=== PATIENT | female | born 1985 | race Caucasian/White ===

== ENCOUNTER 2017-05-28 13:13 | Emergency (ER) | payer OTHER ==
[~2017-05-28] VITALS: Ht 162.6 cm; Wt 99.8 kg
[~2017-05-28 13:13] MED LIST: ADVIL200 M1 PO; AUGMENTIN 875-1 EACH PO; CEPHALEXIN500 MG PO; CIPRO500 MG PO; CLINDAMYCIN HC150 MG PO; CRUTCH1 EACH MISC; CYCLOBENZAPRINE10 MG PO; CYCLOBENZAPRINE5 MG PO; FLEXERIL10 MG PO; GUAIFENESIN-COD10 ML PO; IBUPROFEN200 M1 PO; IBUPROFEN600 MG PO; IBUPROFEN800 MG PO; KEFLEX500 MG PO; NAPROXEN500 MG PO; NORCO 5-325 TA1 EACH PO; NORCO 7.5-3251 EACH PO; PERCOCET 5-3251 EACH PO; PERMETHRIN60 GM; PREDNISONE20 MG PO; PROVENTIL HFA6.7 GM INH; PYRIDIUM200 MG PO; SUDAFED 12-HOU120 MG PO; SUDOGEST60 MG PO; SUMATRIPTAN SUC50 MG PO; TRAMADOL HCL50 MG PO; TYLENOL EXTRA500 MG PO; TYLENOL WITH C1 EACH PO; ULTRAM50 MG PO; ZYRTEC10 MG PO
== END 2017-05-28 15:28 | disposition home or self-care (01) ==
LOC: ED 13:13
DX: F32.9 Major depressive disorder, single episode, unspecified (principal); R45.851 Suicidal ideations; F17.200 Nicotine dependence, unspecified, uncomplicated; Z98.51 Tubal ligation status; Z88.0 Allergy status to penicillin; Z88.5 Allergy status to narcotic agent
CPT/HCPCS: 80053; 80176; 81001; 84703; 85025; 99283; G0480

== ENCOUNTER 2018-09-30 12:11 | Emergency (ER) | payer OTHER ==
[~2018-09-30] VITALS: Ht 162.6 cm; Wt 95.2 kg
--- OUTSIDE RECORDS SUMMARY | 2018-09-30 12:16 | XMS ---
PreManage Notification: BORA JOY Security Blackjack Pit Boss Events No recent Security Events currently on file CRITERIA MET - Group Notification CARE PROVIDERS Estee, Giuliana C Primary Care Current PHONE: Unknown orkenneth Case or Nurse Tech Current PHONE: Unknown Norma has no Care Guidelines for this patient. Adil[place] VISIT COUNT (12 MO.) 1 [facility] [place] TOTAL 1 NOTE: Visits indicate total known visits. ED/UCC VISIT TRACKING (12 MO.) 09/30/2018 12:11 [facility] [place] TYPE: Emergency COMPLAINT: - L THIGH PAIN INPATIENT VISIT TRACKING (12 MO.) No inpatient visits to display in this time frame [email or web address]
== END 2018-09-30 12:57 | disposition home or self-care (01) ==
LOC: ED 12:11
DX: S76.312A Strain of muscle, fascia and tendon of the posterior muscle group at thigh level, left thigh, initial encounter (principal); X58.XXXA Exposure to other specified factors, initial encounter; Y93.72 Activity, wrestling; G43.909 Migraine, unspecified, not intractable, without status migrainosus; F17.200 Nicotine dependence, unspecified, uncomplicated; Z88.0 Allergy status to penicillin; Z88.5 Allergy status to narcotic agent
CPT/HCPCS: 99283

== ENCOUNTER 2018-11-22 12:30 | Emergency (ER) | payer OTHER ==
[~2018-11-22] VITALS: Ht 162.6 cm; Wt 95.2 kg
--- OUTSIDE RECORDS SUMMARY | 2018-11-22 12:32 | XMS ---
PreManage Notification: BORA JOY Security Manager Clinical Applications Events No recent Security Events currently on file CRITERIA MET - Group Notification CARE PROVIDERS TIA MCCULLOUGH Physician Slot Host 10/01/2018-Current PHONE: Unknown Giuliana Fontanez Primary Care Current PHONE: Unknown orkenneth Case or Research Archaeologist Current PHONE: Unknown Norma has no Care Guidelines for this patient. E.D. VISIT COUNT (12 MO.) [address] [facility] TOTAL 2 NOTE: Visits indicate total known visits. ED/UCC VISIT TRACKING (12 MO.) 11/22/2018 12:30 [facility] [place] TYPE: Emergency COMPLAINT: - L FOOT PAIN/NON INJURY 09/30/2018 12:11 [facility] [place] TYPE: Emergency COMPLAINT: - L THIGH PAIN NON INJURY DIAGNOSES: - Migraine, unspecified, not intractable, without status migrainosus - Allergy status to narcotic agent status - Strain of muscle, fascia and tendon of the posterior muscle group at thigh level, left thigh, initial encounter - Exposure to other specified factors, initial encounter - Activity, wrestling - Nicotine dependence, unspecified, uncomplicated - Allergy status to penicillin INPATIENT VISIT TRACKING (12 MO.) No inpatient visits to display in this time frame [email or web address]
[2018-11-22] MEDS ORDERED: INDOMETHACIN50 MG PO (13:51)
== END 2018-11-22 14:06 | disposition home or self-care (01) ==
LOC: ED 12:30
DX: M79.672 Pain in left foot (principal); F17.200 Nicotine dependence, unspecified, uncomplicated; Z88.0 Allergy status to penicillin; Z88.5 Allergy status to narcotic agent
CPT/HCPCS: 73630; 99283

== ENCOUNTER 2019-01-02 09:52 | Emergency (ER) | payer OTHER ==
[~2019-01-02] VITALS: Ht 162.6 cm; Wt 105.8 kg
[~2019-01-02 09:52] MED LIST changes: +INDOMETHACIN50 MG PO
--- OUTSIDE RECORDS SUMMARY | 2019-01-02 09:56 | XMS ---
PreManage Notification: BORA JOY Security Front Man Events No recent Security Events currently on file CRITERIA MET - Group Notification CARE PROVIDERS JOSEFINA MONTEIRO Physician Network Communications Engineer 11/25/2018-Current PHONE: [phone] TIA MCCULLOUGH Physician Network Communications Engineer 10/01/2018-Current PHONE: Unknown Giuliana Fontanez Primary Care Current PHONE: Unknown orkenneth Vergara or Neck Cutter Current PHONE: Unknown Norma has no Care Guidelines for this patient. Adilene VISIT COUNT (12 MO.) 3 [facility] [place] TOTAL 3 NOTE: Visits indicate total known visits. ED/UCC VISIT TRACKING (12 MO.) 01/02/2019 09:53 [facility] [place] TYPE: Emergency COMPLAINT: - DENTAL PAIN 11/22/2018 12:30 [facility] [place] TYPE: Emergency COMPLAINT: - L FOOT PAIN/NON INJURY DIAGNOSES: - Pain in left foot - Allergy status to penicillin - Nicotine dependence, unspecified, uncomplicated - Allergy status to narcotic agent status 09/30/2018 12:11 [facility] [place] TYPE: Emergency COMPLAINT: - L THIGH PAIN [...] visits to display in this time frame [email or web address]
[2019-01-02] MEDS ORDERED: KEFLEX500 MG PO (10:12)
[2019-01-02] MEDS ORDERED: ULTRAM50 MG PO (10:13)
== END 2019-01-02 10:15 | disposition home or self-care (01) ==
LOC: ED 09:52
DX: K08.89 Other specified disorders of teeth and supporting structures (principal)

== ENCOUNTER 2019-02-21 12:01 | Emergency (ER) | payer OTHER ==
[~2019-02-21] VITALS: Ht 160 cm; Wt 95.4 kg
--- OUTSIDE RECORDS SUMMARY | 2019-02-21 12:04 | XMS ---
PreManage Notification: BORA JOY Security Orthopaedic Technologist Events No recent Security Events currently on file CRITERIA MET - Group Notification CARE PROVIDERS JOSEFINA MONTEIRO Physician Transportation Worker 11/25/2018-Current PHONE: [phone] TIA MCCULLOUGH Physician Transportation Worker 10/01/2018-Current PHONE: Unknown Giuliana Fontanez Primary Care Current PHONE: Unknown orkenneth Vergara or Poker Manager Current PHONE: Unknown Norma has no Care Guidelines for this patient. Adilene VISIT COUNT (12 MO.) 4 [facility] [place] TOTAL 4 NOTE: Visits indicate total known visits. ED/UCC VISIT TRACKING (12 MO.) 02/21/2019 12:02 [facility] [place] TYPE: Emergency COMPLAINT: - ABD PAIN 01/02/2019 09:53 [facility] [place] TYPE: Emergency COMPLAINT: - DENTAL PAIN DIAGNOSES: - Other specified disorders of teeth and supporting structures 11/22/2018 12:30 [facility] [place] TYPE: Emergency COMPLAINT: - L FOOT PAIN/NON INJURY DIAGNOSES: - Pain in left foot - Allergy status to penicillin - Nicotine dependence, unspecified, uncomplicated - Allergy status to narcotic agent status 09/30/2018 12:11 [facility] [place] TYPE: Emergency [...] visits to display in this time frame [email or web address]
[2019-02-21] MEDS ORDERED: INDOMETHACIN25 MG PO (16:49)
== END 2019-02-21 16:51 | disposition home or self-care (01) ==
LOC: ED 12:01
DX: R10.30 Lower abdominal pain, unspecified (principal); F17.200 Nicotine dependence, unspecified, uncomplicated; Z88.0 Allergy status to penicillin; Z88.5 Allergy status to narcotic agent
CPT/HCPCS: 76830; 76856; 80053; 81001; 83690; 84703; 85025; 96374; 96375; 99284-25; J1885; J2405

== ENCOUNTER 2019-03-24 18:11 | Emergency (ER) | payer OTHER ==
[~2019-03-24] VITALS: Ht 160 cm; Wt 95.2 kg
[~2019-03-24 18:11] MED LIST changes: +INDOMETHACIN25 MG PO
--- OUTSIDE RECORDS SUMMARY | 2019-03-24 18:14 | XMS ---
PreManage Notification: BORA JOY Security Copier And Printer Field Technician Events No recent Security Events currently on file CRITERIA MET - Group Notification CARE PROVIDERS JOSEFINA MONTEIRO Physician Watch And Clock Maker And Repairer 11/25/2018-Current PHONE: [phone] TIA MCCULLOUGH Physician Watch And Clock Maker And Repairer 10/01/2018-Current PHONE: Unknown Giuliana Fontanez Primary Care Current PHONE: Unknown orkenneth Vergara or Agricultural And Forestry Supervisor Current PHONE: Unknown Norma has no Care Guidelines for this patient. Adilene VISIT COUNT (12 MO.) 5 [facility] [place] TOTAL 5 NOTE: Visits indicate total known visits. ED/UCC VISIT TRACKING (12 MO.) 03/24/2019 18:11 [facility] [place] TYPE: Emergency COMPLAINT: - RT THUMB INJURY 02/21/2019 12:02 [facility] [place] TYPE: Emergency COMPLAINT: - ABD PAIN DIAGNOSES: - Lower abdominal pain, unspecified - Allergy status to penicillin - Nicotine dependence, unspecified, uncomplicated - Allergy status to narcotic agent status 01/02/2019 09:53 [facility] [place] TYPE: Emergency COMPLAINT: - DENTAL PAIN DIAGNOSES: - Other specified disorders of teeth and supporting structures 11/22/2018 12:30 [facility] [place] TYPE: Emergency COMPLAINT: - L FOOT PAIN/NON INJURY DIAGNOSES: - Pain in left foot - Allergy status to penicillin - Nicotine dependence, unspecified, uncomplicated - Allergy status to narcotic agent status 09/30/2018 12:11 [facility] [place] TYPE: Emergency COMPLAINT: - L THIGH [...] visits to display in this time frame [email or web address]
== END 2019-03-24 19:03 | disposition home or self-care (01) ==
LOC: ED 18:11
DX: S63.91XA Sprain of unspecified part of right wrist and hand, initial encounter (principal); F17.200 Nicotine dependence, unspecified, uncomplicated; Z88.0 Allergy status to penicillin; Z88.5 Allergy status to narcotic agent; W20.8XXA Other cause of strike by thrown, projected or falling object, initial encounter
CPT/HCPCS: 73130; 99283